=== PATIENT | male | born 1990 | race Caucasian/White ===

== ENCOUNTER → 2020-12-27 10:57 | Outpatient (CLI) | payer SELFPAY ==
--- NOTE | ~2020-12-27 | XR_ITS ---
EXAMINATION: XR ankle RT 2V EXAM DATE: 12/27/2020 11:30 INDICATION: Right ankle pain w movement . Fell 2 weeks ago, right ankle lateral pain, swelling and br uising. Initial encounter. TECHNIQUE: Frontal and lateral projections of the right ankle. There is no prior study for comparis on. FINDINGS: Age-indeterminate avulsion injury at the dorsal aspect of the right anterior talar process. This is seen on the lateral projection, finding indicated. Also possible tiny anterior calcaneal process fracture. This finding has been indicated, marked on th e examination for review, clinical correlation. The ankle mortise appears intact. There are no acut e fractures or dislocations identified. There is no subcutaneous gas. The soft tissue is unremarkab le. There are no radiopaque foreign bodies. IMPRESSION: 1. Age-indeterminate old avulsion injury at the dorsal aspect of the right anterior talar process. 2. Possible tiny age indeterminate anterior calcaneal process fracture. Reviewed, dictated and finalized at location A. IMPRESSION: 1. Age-indeterminate old avulsion injury at the dorsal aspect of the right ant erior talar process. 2. Possible tiny age indeterminate anterior calcaneal process fracture.
== END ==
DX: M25.571 Pain in right ankle and joints of right foot (principal)
CPT/HCPCS: 73600